=== PATIENT | male | born 1990 | race Caucasian/White ===

== ENCOUNTER 2020-09-22 15:20 | Emergency (ER) | payer MEDICAID, OTHER ==
[~2020-09-22] VITALS: Ht 175.3 cm; Wt 87.0 kg
[2020-09-22 15:39] VITALS: BP 137/79
[2020-09-22] MEDS ORDERED: ACETAMINOPHEN 325MG TABLET PO STA (15:54)
[2020-09-22 16:56] LABS: HEMATOCRIT. 40.1 % (42.0-52.0); HEMOGLOBIN. 13.7 g/dL (14.0-18.0); MEAN CORPUSCULAR HEMOGLOBIN 28.3 pg (28.0-32.0); MEAN CORPUSCULAR VOLUME 82.8 fL (80.0-94.0); MEAN PLATELET VOLUME 8.3 fl (7.4-10.4); PLATELET 168 x1000/uL (130-400); RED BLOOD CELL COUNT 4.84 mill/uL (4.7-6.1); RED CELL DISTRIBUTION WIDTH 13.4 % (11.6-14.6)
[2020-09-22 16:58] LABS: CHLORIDE 104 mEq/L (98-107)
[2020-09-22 17:29] LABS: PLATELET ESTIMATE NORMAL
== END 2020-09-22 17:41 | disposition left against medical advice (07) ==
LOC: ER 15:20
DX: R07.89 Other chest pain (principal)
CPT/HCPCS: 36415; 80053; 84484; 85025; 93005; 99284